=== PATIENT | female | born 1930 | race American Indian/Alaskan Native ===

== ENCOUNTER 2017-01-28 19:37 | Emergency (ER) | payer MEDICARE, OTHER ==
[~2017-01-28] VITALS: Ht 152.4 cm; Wt 49.9 kg
[2017-01-28 19:55] VITALS: BP 160/80
[2017-01-28 21:55] VITALS: BP 159/75
[2017-01-28] MEDS ORDERED: TYLENOL EXTRA500 MG ORAL (22:14)
[2017-01-28 22:55] VITALS: BP 154/75
--- NOTE | 2017-01-29 12:35 | Diagnostic Imaging Report ---
Indication: pain Findings: 3 views of the left hand were obtained. The bones are osteopenic. There is joint space narrowing involving the wrist and multiple locations in the hand. There is no obvious fracture. Chondrocalcinosis of the triangle fibrocartilage complex. Impression: No acute injury identified.
--- NOTE | 2017-01-29 14:52 | Emergency Room Report ---
History of Present Illness General Chief Complaint: General Complaint Source: Patient Present Illness HPI 86-year-old female presents to ER for evaluation. States the last several months she's been having left hand swelling. Has been to multiple ERs and has been told everything is normal. Patient states pain is throbbing, 5/10, nonradiating. Patient also states there is swelling in her bilateral legs. Also complains of pain in her left shoulder. Denies chest pain or shortness of breath. Patient states she just moved here from [place]. Does not have a primary care doctor here. No other aggravating relieving factors. Denies any other associated symptoms Allergies: Coded Allergies: BENAZEPRIL (Verified Allergy, Intermediate, 01/28/17) SULFAMETHOXAZOLE (Verified Allergy, Intermediate, 01/28/17) TRIMETHOPRIM (Verified Allergy, Intermediate, 01/28/17) DIGOXIN (Verified Allergy, Unknown, 01/28/17) Patient History Past Medical History: HTN Past Surgical History: none Pertinent Family History: none Social History: Denies: alcohol use, drug use, smoking Now: No Immunizations: UTD Reviewed Nursing Documentation: PMH: Agreed, PSxH: Agreed Nursing Documentation-PMH Hx Hypertension: Yes Review of Systems All Other Systems: negative except mentioned in HPI Physical Exam Vital Signs Date Time Temp Pulse Resp B/P Pulse Ox O2 Delivery O2 Flow Rate FiO2 01/28/17 19:48 97.9 78 16 160/80 98 Room Air Sp02 EP Interpretation: reviewed, normal General Appearance: no apparent distress, alert, GCS 15, non-toxic Head: normocephalic Eyes: bilateral eye PERRL, bilateral eye normal inspection ENT: normal ENT inspection Neck: normal inspection Respiratory: chest non-tender, lungs clear, normal breath sounds, speaking full sentences Cardiovascular #1: regular rate, rhythm, no edema Gastrointestinal: normal inspection Rectal: deferred Genitourinary: no CVA tenderness Musculoskeletal: swelling - L hand, tender - L shoulder Neurologic: alert, oriented x3, responsive, motor strength/tone normal, sensory intact, speech normal Psychiatric: judgement/insight normal, memory normal, mood/affect normal, no suicidal/homicidal ideation Skin: normal inspection Lymphatic: normal inspection Medical Decision Making Diagnostic Impression: Primary Impression: Swelling of hand Qualified Codes: M79.89 - Other specified soft tissue disorders ER Course Hospital Course 86-year-old F presents to ED complaining of L hand pain/swelling x months Differential diagnoses include: Fracture, dislocation, sprain, contusion Clinical course Patient placed on stretcher. After initial history and physical, I ordered xrays of L hand and doppler US of BETTIE She later stated that she would like to have an x-ray of her left shoulder and ultrasound of her bilateral legs as she notes swelling in her legs. I do not see any swelling the patient insists on having ultrasounds Xrays prelim read shows no acute fracture/dislocation. 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 Likely the reason for her swelling Doppler ultrasounds negative for DVT Diagnosis - swelling of hand Stable and discharged to home with prescription for Tylenol. apply ice, keep elevated. weight bear as tolerated. Followup with PMD. Return to ED if symptoms recur or worsen Other X-Ray Diagnostic Results Other X-Ray Diagnostic Results #1: X-Ray ordered: L shoulder # of Views/Limited Vs Complete: 3 View Indication: Pain EP Interpretation: Yes Interpretation: no dislocation, no soft tissue swelling, no fractures Impression: No acute disease Interpreting ER Provider: Electronically signed by Paul Bee MD Other X-Ray Diagnostic Results #2: X-Ray ordered: Left hand # of Views/Limited Vs Complete: 3 View Indication: Swelling EP Interpretation: Yes Interpretation: no dislocation, no soft tissue swelling, no fractures, other - joint space narrowing of bones in hand, osteopenia Impression: Other - arthritis Interpreting ER Provider: Electronically signed by Paul Bee MD CT/MRI/US Diagnostic Results CT/MRI/US Diagnostic Results #1: Imaging Test Ordered: Doppler ultrasound of left upper extremity Impression No DVT CT/MRI/US Diagnostic Results #2: Imaging Test Ordered: Doppler ultrasound of left lower extermity Impression no DVT CT/MRI/US Diagnostic Results #3: Imaging Test Ordered: Doppler ultrasound of right lower extremity Impression no DVT Last Vital Signs Date Time Temp Pulse Resp B/P Pulse Ox O2 Delivery O2 Flow Rate FiO2 01/28/17 22:55 98.1 82 15 154/75 96 Room Air Status: improved Disposition: HOME, SELF-CARE Condition: Stable Scripts Acetaminophen* (TYLENOL EXTRA STRENGTH*) 500 Mg Tablet 500 MG ORAL Q8H Y for Prn Headache/Temp > 101, #30 TAB 0 Refills Prov: PAUL BEE M.D. 01/28/17 Patient Instructions: Arthritis, [id number] PAUL BEE M.D. Jan 29, 2017 14:52
--- NOTE | 2017-01-29 15:47 | Diagnostic Imaging Report ---
Indication: Pain Findings: 3 views of the left shoulder were obtained. There is no fracture. The bones are osteopenic. Alignment is normal. Degenerative changes of the acromioclavicular joint noted. Impression: No acute injury
== END 2017-01-28 22:25 | disposition home or self-care (01) ==
LOC: EMR 21:38
DX: M79.89 Other specified soft tissue disorders (principal); I10 Essential (primary) hypertension; Z88.2 Allergy status to sulfonamides; Z88.8 Allergy status to other drugs, medicaments and biological substances
CPT/HCPCS: 93970; 93971; 99284